=== PATIENT | female | born 1995 | race Caucasian/White ===

== ENCOUNTER 2017-07-16 10:23 | Emergency (ER) | payer OTHER ==
--- NOTE | 2017-07-16 10:27 | EDM.PDOC ---
ED HPI GENERAL MEDICAL PROBLEM - General Chief Complaint: General Stated Complaint: facial swelling Time Seen by Provider: 07/16/17 10:25 Source of Information: Reports: Patient, Significant Other. Denies: Old Records (No [facility] records available) History Limitations: Reports: No Limitations - History of Present Illness INITIAL COMMENTS - FREE TEXT/NARRATIVE: The patient was brought to the emergency room via private automobile by her significant other for evaluation of increased left cheek swelling and left upper dental pain with symptoms starting at about 04:30 a.m. this morning. She has not taken any recent antipyretic medication with fever of 101.5 yesterday. No history of dental injury with improved dental pain at this time with initial discomfort at 7/10. Note that the patient was seen by DESTINY Cristina, at [facility] in [place] yesterday and diagnosed with low back pain and a possible UTI, although no current UTI symptoms or significant low back pain at this time. She was prescribed Levaquin, Flexeril, and meloxicam yesterday with no NSAIDs taken today. No recent history of abdominal pain, heartburn, nausea, diarrhea, melena, gross hematochezia, or any food intolerance, including fatty foods, etc.. The patient also denies any recent wheezing, dyspnea, etc., although the patient did have influenza about 3 weeks ago with mild occasional nonproductive cough since yesterday. She did not take Tamiflu at that time with improved symptoms other than fever today. Onset: Gradual Onset Date: 07/16/17 Onset Time: 04:30 Duration: Constant Location: Reports: Face, Back (Much improved). Denies: Head, Neck, Chest, Abdomen, Pelvis, Upper Extremity, Left, Upper Extremity, Right, Lower Extremity , Left, Radiates to Quality: Reports: Ache Severity: Moderate Improves with: Reports: None Worsens with: Reports: None Context: Reports: Other (As above) Associated Symptoms: Reports: Cough, Fever/Chills. Denies: Confusion, Chest Pain, cough w sputum, Diaphoresis, Headaches, Malaise, Nausea/Vomiting, Shortness of Breath, Syncope, Weakness Treatments [employer] WORKER: Reports: Other Medication(s) (As above) Left Upper Face Pain Score (Numeric/FACES): 7 - Related Data Allergies Allergy/AdvReac Type Severity Reaction Status Date / Time azithromycin [From Zithromax] Allergy Rash Verified 07/16/17 10:31 Penicillins Allergy Vomiting Verified 07/16/17 10:31 Home Meds: Home Meds Amoxicillin/Potassium Clav [Augmentin 875-125 Tablet] 1 each PO BIDMEALS #20 tablet 07/16/17 [Rx] Cyclobenzaprine [Flexeril] 10 mg PO TID PRN 07/16/17 [History] Levofloxacin [Levaquin] 500 mg PO DAILY 07/16/17 [History] Meloxicam 7.5 mg PO DAILY 07/16/17 [History] Past Medical History HEENT History: Reports: Allergic Rhinitis, Impaired Vision, Other (See Below). Denies: Cataract, Glaucoma, Hard of Hearing, Macular Degeneration, Retinal Detachment Other HEENT History: Patient wears soft contact lenses and occasional glasses Cardiovascular History: Reports: None. Denies: Afib, Aneurysm, Arrhythmia, Blood Clots/VTE/DVT, CAD, Heart Murmur, High Cholesterol, Hypertension, PVD, Syncope Respiratory History: Denies: Asthma, Bronchitis, Recurrent, COPD, Intubation, Difficult, Intubation, Previous, PE, Pneumothorax Gastrointestinal History: Reports: None. Denies: Celiac Disease, Chronic Constipation, Chronic Diarrhea, Cirrhosis, Fecal Incontinence, Gastritis, GERD, Hepatitis, Inflammatory Bowel Disease, Irritable Bowel Syndrome, Jaundice, Pancreatitis, PUD Genitourinary History: Reports: None. Denies: Acute Renal Failure, Chronic Renal Insuffiency, Pyelonephritis, Renal Calculus, STD, UTI, Recurrent SOFTWARE SYSTEMS ARCHITECT History: Reports: Dysfunctional Uterine Bleeding. Denies: Endometriosis , Fibroids, PID, , Spontaneous LMP (Approximate): Menstruating (With current control pill use secondary to hypermenorrhea) Musculoskeletal History: Reports: None. Denies: Amputation, Arthritis, Back Pain, Chronic, Fracture, Gout, Neck Pain, Chronic, Osteoarthritis, RA, SLE Neurological History: Reports: Concussion, Headaches, Chronic, Head Trauma, Other (See Below). Denies: Cerebral Aneurysms, CVA, Migraines, Neuropathy, Peripheral, Seizure, TIA Other Neuro History: History of head concussions 3 last at age 18 Psychiatric History: Reports: None. Denies: Abuse, Victim of, ADD, ADHD, Addiction, Anxiety, Depression, Psych Hospitalization(s), PTSD, Suicide Attempt , Suicidal Ideation Endocrine/Metabolic History: Reports: None. Denies: Diabetes, Type I, Diabetes , Type II, Hypothyroidism, IDDM, Multinodular Thyroid Hematologic History: Denies: Anemia, Blood Transfusion(s), Iron Deficiency Immunologic History: Reports: None. Denies: AIDS, HIV, SLE Oncologic (Cancer) History: Reports: Malignant Melanoma, Other (See Below). Denies: Basal Cell Carcinoma, Cervix, Hodgkin's Lymphoma, Leukemia, Lymphoma, Metastatic, Non-Hodgkin's Lymphoma, Squamous Cell Carcinoma Other Oncologic History: Melanoma of the right posterior distal femoral region with excision as below and no subsequent chemotherapy, etc. Dermatologic History: Reports: None. Denies: Eczema, Psoriasis - Infectious Disease History Infectious Disease History: Reports: Influenza (June 2017). Denies: C- Difficile, Chicken Pox, Measles, Meningitis, Mononucleosis, MRSA, Mumps, Pertussis (Whooping Cough), Rheumatic Fever, Rubella, Scarlet Fever, Shingles - Past Surgical History Head Surgeries/Procedures: Reports: None HEENT Surgical History: Reports: None. Denies: Adenoidectomy, Eye Surgery, Laser Surgery, LASIK, Myringotomy w Tube(s), Naso-Sinus Surgery, Oral Surgery, Tonsillectomy Cardiovascular Surgical History: Reports: None. Denies: Varicose Respiratory Surgical History: Reports: None. Denies: Thoracentesis GI Surgical History: Reports: None. Denies: Appendectomy, Cholecystectomy, Colonoscopy, EGD, Hernia, Abdominal, Hernia, Inguinal, Hernia Repair/Other Female Surgical History: Reports: None. Denies: Tubal Ligation Endocrine Surgical History: Reports: None. Denies: Thyroid Biopsy Neurological Surgical History: Reports: None. Denies: C-Spine, Discectomy, Intracranial, Laminectomy, Lumbar Spine, Sacral Spine, Spinal Fusion, Vertebroplasty Musculoskeletal Surgical History: Reports: None. Denies: Arthroscopic Procedure , Carpal Tunnel, Ganglion Cyst, Joint Replacement, ORIF, Shoulder Surgery Oncologic Surgical History: Reports: None Dermatological Surgical History: Reports: Other (See Below) Other Dermatological Surgeries/Procedures: Excision of melanoma from the right leg on 07/11/16 - Past Imaging History Past Imaging History: Reports: None Social & Family History - Tobacco Use Smoking Status *Q: Never Smoker Tobacco Use Within Last Twelve Months: No Used Tobacco, but Quit: No Smoking Cessation Information Provided To Patient: No Second Hand Smoke Exposure: No Second Hand Smoke Education Provided: No - Caffeine Use Caffeine Use: Reports: Coffee (One cup every 2 weeks). Denies: Energy Drinks, Soda, Tea - Alcohol Use Alcohol Use History: Yes Days Per Week of Alcohol Use: 1 (No previous DWIs, problems with alcohol abuse, etc.) Number of Drinks Per Day: 3 (Usually beer or mixed drinks) Total Drinks Per Week: 3 Alcohol Use in Last Twelve Months: Yes Alcohol Use Frequency: Socially - Recreational Drug Use Recreational Drug Use: No Drug Use in Last 12 Months: No Recreational Drug Type: Denies: Amphetamines (Speed), Cocaine, Flunitrazepam, Heroin, LSD (Acid), Marijuana/Hashish, Methamphetamine, Morphine - Living Situation & Occupation Living situation: Reports: Alone Occupation: Unemployed ED ROS GENERAL - Review of Systems Review Of Systems: ROS reveals no pertinent complaints other than HPI. ED EXAM, GENERAL - Physical Exam Exam: See Below Exam Limited By: No Limitations General Appearance: Alert, WD/WN, No Apparent Distress Eye Exam: Bilateral Eye: EOMI, Normal Inspection (No nystagmus), PERRL Ears: Normal External Exam, Normal Canal, Hearing Grossly Normal, Normal TMs Nose: Clear Rhinorrhea (Mild) Throat/Mouth: Normal Lips, Normal Teeth, Normal Gums, Normal Oropharynx (Trace erythema in the posterior pharynx with no pinpoint white exudates or peritonsillar abscess), Normal Voice, No Airway Compromise. No: Dysphagia, Inflammation, Perioral Cyanosis Head: Normocephalic, Facial Swelling (Moderate left cheek swelling with +2 erythema and mild local warming with only mild localized tenderness), Facial Tenderness, Sinus Tenderness Neck: Normal Inspection, Supple, Non-Tender, Full Range of Motion. No: Lymphadenopathy (L), Lymphadenopathy (R), Thyromegaly Respiratory/Chest: No Respiratory Distress, Lungs Clear, Normal Breath Sounds, No Accessory Muscle Use, Chest Non-Tender. No: Pleural Rub, Retractions Cardiovascular: Normal Peripheral Pulses, Regular Rate, Rhythm (Borderline occasional tachycardia secondary to fever), No Edema, No Gallop, No JVD, No Murmur, No Rub, Tachycardia (As above). No: Gallop/S3, Gallop/S4, Friction Rub Peripheral Pulses: 2+: Radial (L), Radial (R) GI/Abdominal: Normal Bowel Sounds, Soft, Non-Tender, No Organomegaly, No Distention, No Abnormal Bruit, No Mass, Pelvis Stable. No: Guarding (Female) Exam: Deferred Rectal (Female) Exam: Deferred Back Exam: Normal Inspection, Full Range of Motion. No: CVA Tenderness (L), CVA Tenderness (R), Muscle Spasm Extremities: Normal Inspection, Normal Range of Motion, Non-Tender, No Pedal Edema, Normal Capillary Refill. No: Angelika's Sign Neurological: Alert, Oriented, CN II-XII Intact, Normal Cognition, Normal Gait, Normal Reflexes, No Motor/Sensory Deficits Psychiatric: Normal Affect, Normal Mood Skin Exam: Erythema, Increased Warmth (As above), Rash (As above). No: Diaphoretic, Lymphangitis, Wound/Incision Lymphatic: No Adenopathy Course - Vital Signs Last Recorded V/S: Last Vital Signs Temp 38.6 C H 07/16/17 11:08 Pulse 104 H 07/16/17 10:24 Resp 16 07/16/17 10:24 BP 96/56 L 07/16/17 10:24 Pulse Ox 100 07/16/17 10:24 - Orders/Labs/Meds Orders: Active Orders 24 hr Category Date Time Status Peripheral IV Care [RC] . DIRECTED Care 07/16/17 10:32 Active CULTURE BLOOD [] Stat Lab 07/16/17 10:43 Received CULTURE BLOOD [] Stat Lab 07/16/17 10:55 Received CULTURE STREP A CONFIRMATION [] Stat Lab 07/16/17 10:30 Results STREP SCRN A RAPID W CULT CONF [] Stat Lab 07/16/17 10:30 Results Sodium Chloride 0.9% [Saline Flush] Med 07/16/17 10:31 Active 10 ml FLUSH ASDIRECTED PRN Blood Culture x2 Reflex Set [OM.PC] Urgent Oth 07/16/17 10:31 Ordered Obtain Past Medical Record [OM.PC] Routine Oth 07/16/17 10:30 Active Peripheral IV Insertion Adult [OM.PC] Routine Oth 07/16/17 10:32 Ordered Medication Orders Sodium Chloride (Saline Flush) 10 ml FLUSH ASDIRECTED PRN PRN Reason: Keep Vein Open Last Admin: 07/16/17 11:08 Dose: 10 ml Labs: Laboratory Tests 07/16/17 07/16/17 07/16/17 Range/Units 10:43 10:43 10:43 WBC 3.7 L (4.0-10.2) K/uL RBC 3.94 (3.77-5.09) M/uL Hgb 12.1 (11.7-15.5) g/dL Hct 35.5 (34.0-46.0) % MCV 90.1 (84.0-98.0) fL MCH 30.7 (28.2-33.3) pg MCHC 34.1 (31.7-36.0) g/dL RDW 13.0 (11.2-14.1) % Plt Count 181 (150-350) K/uL Neut % (Auto) 69.2 (45.0-80.0) % Lymph % (Auto) 20.5 (10.0-50.0) % [place] % (Auto) 10.0 (2.0-14.0) % Eos % (Auto) 0.0 (0.0-5.0) % Baso % (Auto) 0.3 (0.0-2.0) % Neut # (Auto) 2.57 (1.40-7.00) K/uL Lymph # (Auto) 0.76 (0.50-3.50) K/uL [place] # (Auto) 0.37 (0.00-1.00) K/uL Eos # (Auto) 0.00 (0.00-0.50) K/uL Baso # (Auto) 0.01 (0.00-0.20) K/uL Sodium 136 (136-145) mmol/L Potassium 3.8 (3.5-5.1) mmol/L Chloride 100 (98-107) mmol/L Carbon Dioxide 22.6 (21.0-32.0) mmol/L BUN 8 (7-18) mg/dL Creatinine 0.90 (0.51-1.17) mg/dL Est Cr Clr Drug Dosing 73.99 mL/min Estimated GFR (MDRD) > 60 mL/min Glucose 102 (74-106) mg/dL Lactic Acid 0.8 (0.4-2.0) mmol/L Calcium 8.4 L (8.5-10.1) mg/dL Total Bilirubin 0.4 (0.2-1.0) mg/dL AST 30 (15-37) U/L ALT 15 (12-78) U/L Alkaline Phosphatase 40 L (46-116) IU/L Total Protein 7.0 (6.4-8.2) g/dL Albumin 3.3 L (3.4-5.0) g/dL Meds: Medications Generic Name Dose Route Start Last Admin Trade Name Freq PRN Reason Stop Dose Admin Sodium Chloride 10 ml 07/16/17 10:31 07/16/17 11:08 Saline Flush FLUSH 10 ml ASDIRECTED PRN Administration Keep Vein Open Discontinued Medications Generic Name Dose Route Start Last Admin Trade Name Freq PRN Reason Stop Dose Admin Acetaminophen 650 mg 07/16/17 10:34 07/16/17 10:59 Tylenol PO 07/16/17 10:35 650 mg NOW ONE Administration Ceftriaxone Sodium 2 gm/ 100 mls @ 200 mls/hr 07/16/17 10:32 07/16/17 11:00 Sodium Chloride IV 07/16/17 11:01 200 mls/hr ONETIME ONE Administration - Radiology Interpretation Free Text/Narrative:: None Departure - Departure Time of Disposition: 12:20 Disposition: Home, Self-Care 01 Condition: Good Clinical Impression: Pain, dental, Upper respiratory infection, Hypoalbuminemia Cellulitis Qualifiers: Site of cellulitis: face Qualified Code(s): L03.211 - Cellulitis of face Low back pain Qualifiers: Chronicity: acute Back pain laterality: bilateral Sciatica presence: without sciatica Qualified Code(s): M54.5 - Low back pain - Discharge Information Prescriptions: Amoxicillin/Potassium Clav [Augmentin 875-125 Tablet] 1 each PO BIDMEALS #20 tablet Referrals: PCP,None [Primary Care Provider] - Forms: ED Department Discharge Additional Instructions: 1. Follow-up with your dentist NATACHA 2. Follow up with your regular provider in 10-14 days as needed, if symptoms persist. 3. Listerine gargles four times per day, after meals and at bedtime, with additional Chloroseptic lozenges or spray as needed for 10 days and/or until symptoms resolve. 4. Tylenol 650 mg by mouth every 4 hours when necessary as directed. 5. Ice packs to facial region as needed/discussed - Problem List & Annotations (1) Cellulitis SNOMED Code(s): 040199271 Code(s): L03.90 - CELLULITIS, UNSPECIFIED Status: Acute Priority: High Onset Date: 07/16/17 Annotation/Comment:: High dose IV Rocephin given as above with patient having only mild GI intolerance/emesis with previous penicillin administration. She only has 6 doses of Levaquin remaining with U[facility] from [facility] really not indicating a UTI, although urine culture report is pending. No direct evidence of sinusitis, however possible developing dental abscess secondary to recent dental pain as above. Close follow-up by her dentist as per discharge instructions. Qualifiers: Site of cellulitis: face Qualified Code(s): L03.211 - Cellulitis of face (2) Pain, dental SNOMED Code(s): 24629120 Code(s): K08.89 - OTHER SPECIFIED DISORDERS OF TEETH AND SUPPORTING STRUCTURES Status: Acute Priority: High Onset Date: 07/16/17 Annotation/ Comment:: As above (3) Upper respiratory infection SNOMED Code(s): 32961906 Code(s): J06.9 - ACUTE UPPER RESPIRATORY INFECTION, UNSPECIFIED Status: Acute Priority: Medium Current Visit: Yes Onset Date: ~07/14/17 Annotation/Comment:: Mild leukopenia consistent with probable viral infection, including possible pharyngitis with negative strep screen as above. Note recent influenza infection. Symptomatic relief for now. Qualifiers: URI type: unspecified viral URI Qualified Code(s): J06.9 - Acute upper respiratory infection, unspecified (4) Low back pain SNOMED Code(s): 795030612 Code(s): M54.5 - LOW BACK PAIN Status: Acute Priority: Medium Onset Date: ~07/15/17 Annotation/Comment:: Improvement with recent medical therapy as above with no significant current symptoms today Qualifiers: Chronicity: acute Back pain laterality: bilateral Sciatica presence: without sciatica Qualified Code(s): M54.5 - Low back pain (5) Hypoalbuminemia SNOMED Code(s): 336225870 Code(s): E88.09 - OTH DISORDERS OF PLASMA-PROTEIN METABOLISM, NEC Status: Acute Priority: Medium Current Visit: Yes Onset Date: 07/16/17 Annotation/Comment:: Observe for now. Consider high protein supplement - Problem List Review Problem List Initiated/Reviewed/Updated: Yes - My Orders Last 24 Hours: My Active Orders 07/16/17 10:30 CULTURE STREP A CONFIRMATION [RM] Stat STREP SCRN A RAPID W CULT CONF [RM] Stat Obtain Past Medical Record [OM.PC] Routine 07/16/17 10:31 Sodium Chloride 0.9% [Saline Flush] 10 ml FLUSH ASDIRECTED PRN Blood Culture x2 Reflex Set [OM.PC] Urgent 07/16/17 10:32 Peripheral IV Care [RC] . DIRECTED Peripheral IV Insertion Adult [OM.PC] Routine 07/16/17 10:43 CULTURE BLOOD [BC] Stat 07/16/17 10:55 CULTURE BLOOD [BC] Stat - Assessment/Plan Last 24 Hours: My Active Orders 07/16/17 10:30 CULTURE STREP A CONFIRMATION [RM] Stat STREP SCRN A RAPID W CULT CONF [RM] Stat Obtain Past Medical Record [OM.PC] Routine 07/16/17 10:31 Sodium Chloride 0.9% [Saline Flush] 10 ml FLUSH ASDIRECTED PRN Blood Culture x2 Reflex Set [OM.PC] Urgent 07/16/17 10:32 Peripheral IV Care [RC] . DIRECTED Peripheral IV Insertion Adult [OM.PC] Routine 07/16/17 10:43 CULTURE BLOOD [BC] Stat 07/16/17 10:55 CULTURE BLOOD [BC] Stat Assessment:: As above Plan: As above. Extensive precautions were given to the patient, who is in agreement with the treatment plan. See Patient Instructions for further treatment and plan.
[2017-07-16] MEDS: Acetaminophen 325 MG Tab PO ONE (10:59)
[2017-07-16] MEDS: cefTRIAXone 2 GM in Sodium Chloride 0.9% 100 ML IV ONE (11:00)
[2017-07-16 11:08] LABS: CHLORIDE,CL 100 mmol/L (98-107); SODIUM,NA 136 mmol/L (136-145)
[2017-07-16] MEDS: Sodium Chloride 0.9% 10 ML Syringe FLUSH PRN (11:08)
== END 2017-07-16 12:20 | disposition home or self-care (01) ==
LOC: LL.ED 10:23
DX: L03.211 Cellulitis of face (principal); J06.9 Acute upper respiratory infection, unspecified; M54.5 Low back pain; E88.09 Other disorders of plasma-protein metabolism, not elsewhere classified; Z88.1 Allergy status to other antibiotic agents; Z88.0 Allergy status to penicillin; Z79.899 Other long term (current) drug therapy
CPT/HCPCS: 36415; 80053; 83605; 85025; 87040; 87081; 87430; 96365; 99284; A9270; J0696; J7050